=== PATIENT | male | born 1995 | race Native Hawaiian/Other Pacific Islander ===

== ENCOUNTER 2019-03-13 09:24 | Outpatient (CLI) | payer BC ==
[2019-03-13] MEDS ORDERED: RANI150T78 PO (09:41)
[2019-03-13] MEDS ORDERED: ALBUTEROL0.083 % INH (09:48)
[2019-03-13] MEDS ORDERED: PAXIL10 MG PO (09:48)
[2019-03-13] MEDS ORDERED: ALBU90AE13 INH (09:49)
== END 2019-03-13 09:27 | disposition short-term general hospital (02) ==
LOC: AMB 09:24
DX: R07.9 Chest pain, unspecified (principal)
CPT/HCPCS: A0425; A0427

== ENCOUNTER 2019-03-13 09:28 | Emergency (ER) | payer BC ==
[~2019-03-13] VITALS: Ht 180.3 cm; Wt 72.6 kg
[2019-03-13 09:28] VITALS: TEMP 99.5
[2019-03-13] MEDS ORDERED: RANI150T78 PO (09:41)
[2019-03-13] MEDS ORDERED: ALBUTEROL0.083 % INH (09:48)
[2019-03-13] MEDS ORDERED: PAXIL10 MG PO (09:48)
[2019-03-13] MEDS ORDERED: ALBU90AE13 INH (09:49)
[2019-03-13 09:58] LABS: PLATELET COUNT 203 K/uL (142-355)
[2019-03-13 10:02] LABS: POTASSIUM 4.1 mmol/L (3.6-5.2); SODIUM 140 mmol/L (136-145)
[2019-03-13 11:00] VITALS: BP 131/78
== END 2019-03-13 11:35 | disposition home or self-care (01) ==
LOC: ED 09:37
PROVIDERS: Emergency Medicine
DX: R07.89 Other chest pain (principal)
CPT/HCPCS: 80053; 82550; 82553; 84484; 85027; 93005; 99284